=== PATIENT | male | born 1940 | race Native Hawaiian/Other Pacific Islander ===

== ENCOUNTER 2018-11-05 13:42 | Outpatient (CLI) | payer OTHER | END 2018-11-05 19:40 | disposition home or self-care (01) | LOC: CT 13:42 | DX: Z12.2 Encounter for screening for malignant neoplasm of respiratory organs (principal); R91.8 Other nonspecific abnormal finding of lung field ==

== ENCOUNTER 2020-07-23 08:14 | Outpatient (CLI) | payer OTHER | END 2020-07-23 19:15 | disposition home or self-care (01) | LOC: CT 08:14 | PROVIDERS: ATTEND Internal Medicine | DX: R91.8 Other nonspecific abnormal finding of lung field (principal) | CPT/HCPCS: 36415; 82565; 84520; Q9963 ==

== ENCOUNTER 2022-04-07 08:38 | Outpatient (CLI) | payer OTHER | END 2022-04-07 20:40 | disposition home or self-care (01) | LOC: CT 08:38 | PROVIDERS: ATTEND Internal Medicine | DX: R93.89 Abnormal findings on diagnostic imaging of other specified body structures (principal) | CPT/HCPCS: 36415; 82565; 84520; Q9963 ==

== ENCOUNTER 2023-02-12 15:22 | Outpatient (CLI) | payer OTHER, MEDICARE ==
[2023-02-12 16:19] LABS: POTASSIUM 3.9 mmol/L (3.6-5.2)
[2023-02-12 16:22] LABS: PLATELET COUNT 198 K/uL (142-355)
== END 2023-02-12 20:04 | disposition home or self-care (01) ==
LOC: LAB 15:22
PROVIDERS: ATTEND Internal Medicine
DX: F41.8 Other specified anxiety disorders (principal); I25.10 Atherosclerotic heart disease of native coronary artery without angina pectoris
CPT/HCPCS: 80053; 80061; 81002; 84439; 84443; 85027